=== PATIENT | female | born 1950 | race Caucasian/White ===

== ENCOUNTER 2022-05-26 11:41 | Outpatient (CLI) | payer MEDICARE | END 2022-05-26 11:42 | disposition home or self-care (01) | LOC: CSHMAMMO 11:41 | PROVIDERS: ATTEND Family Medicine | DX: Z12.31 Encounter for screening mammogram for malignant neoplasm of breast (principal); Z98.82 Breast implant status | CPT/HCPCS: 77063; 77067 ==